=== PATIENT | male | born 1990 | race Caucasian/White ===

== ENCOUNTER 2021-08-22 18:22 | Emergency (ER) | payer OTHER ==
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
[2021-08-22] MEDS ORDERED: HYDROCODONE/APAP 10/325 TAB ONE (19:36)
[2021-08-22 19:41] VITALS: BP 135/71; O2SAT 100
== END 2021-08-22 19:36 | disposition home or self-care (01) ==
LOC: ER 18:22
DX: M54.50 Low back pain, unspecified (principal); W18.30XA Fall on same level, unspecified, initial encounter; Y92.814 Boat as the place of occurrence of the external cause
CPT/HCPCS: 70450; 71250; 72125; 99283